=== PATIENT | male | born 1980 | race Two or more races ===

== ENCOUNTER 2024-07-29 00:30 | Emergency (ER) | payer SELFPAY ==
[2024-07-29 00:31] VITALS: BMI 25.0
== END 2024-07-29 01:48 | disposition left against medical advice (07) ==
LOC: SERX 03:21
PROVIDERS: Emergency Provider Emergency Medicine
DX: Z53.21 Procedure and treatment not carried out due to patient leaving prior to being seen by health care provider (principal)

== ENCOUNTER 2024-07-29 19:31 | Emergency (ER) | payer MEDICAID, SELFPAY ==
[2024-07-29 20:16] VITALS: BP 150/64; PULSE 69; RESP 18; TEMP 37.2; O2SAT 99
--- NOTE | 2024-07-29 20:30 | XR_ITS ---
Examination: CT abdomen and pelvis without contrast. Coronal 3-D reconstructions. Sagittal 2-D reconstructions. Date and time of exam:July 29, 2024 2049 hrs. Indications: Onset left-sided flank pain beginning yesterday CTDI: vol (mGy): 6.80 DLP: (mGycm): 405 Technique: Axial images of the abdomen have been obtained, 3 mm slice thickness Intravenous contrast material has not been administered. Low dose protocols were performed. One or more of the following dose reduction techniques were used; automated exposure control, adjustment of the mA and/or KV according to patient size, use of iterative reconstruction technique. Findings: No focal liver or splenic lesion No gallstones No pancreatic or adrenal mass 2 mm nonobstructing left renal calculus Mild left hydronephrosis secondary to 4.5 mm proximal left ureteral calculus Aorta normal size Normal appendix No bowel obstruction or free air No bladder mass or bladder calculi Impression: Mild left hydronephrosis secondary to 4.5 mm proximal left ureteral calculus
[2024-07-29] MEDS: ONDANSETRON ODT 4 MG TABRAP PO (20:42)
[2024-07-29] MEDS: KETOROLAC INJ 60 MG/2 ML VIAL IM (20:43)
--- NOTE | 2024-07-29 21:04 | EDNOTE_ITS ---
<Statement entered by Nisa Mary MD - 07/30/24 04:06> As co-signing physician, I was present and available for consult prn. I concur with the plan and care as documented by the midlevel provider. ED Back Injury Pain RME/HPI General Chief Complaint: Abdominal Pain Stated Complaint: LEFT FLANK PAIN Time Seen by Provider: 07/29/24 20:22 Arrival date/time: 07/29/24 19:31 43M with no significant PMH presents to ED with 1 day of L flank pain and N/V. Patient denies dysuria, but there is a pressure sensation when urinating. Limitations: no limitations Related Data Previous Rx's ?Medication ?Instructions ?Recorded naproxen 500 mg tablet 500 mg PO BID PRN pain #30 tabs 07/29/24 ondansetron 4 mg disintegrating 4 mg PO Q8H PRN nausea and 07/29/24 tablet vomiting #30 tabs tamsulosin 0.4 mg capsule (Flomax) 0.4 mg PO QDAY #30 caps 07/29/24 Allergies Allergy/AdvReac Type Severity Reaction Status Date / Time No Known Allergies Allergy Verified 07/29/24 19:34 Review of Systems Review of Systems Systems Reviewed: All systems reviewed, normal except as documented Constitutional Constitutional: Reports system reviewed and no additional complaints, except as documented, Denies fever(s) and Denies headache(s) ENT Ears, Nose, Mouth, and Throat: Denies disequilibrium and Denies headache(s) Cardiovascular Cardiovascular: Reports system reviewed and no additional complaints, except as documented, Denies chest pain and Denies dyspnea Respiratory Respiratory: Reports system reviewed and no additional complaints, except as documented, Denies cough and Denies dyspnea Gastrointestinal Gastrointestinal: Reports system reviewed and no additional complaints, except as documented, Reports as per HPI, Denies abdominal pain, Reports nausea and Reports vomiting Genitourinary Genitourinary: Reports as per HPI and Reports flank pain Neurologic Neurologic: Reports system reviewed and no additional complaints, except as documented, Denies confusion, Denies disequilibrium and Denies headache(s) Psychiatric Psychiatric: Denies confusion Past Medical History Social History SMOKING STATUS: Current some day smoker ED Exam General Limitations: Present no limitations General appearance: Present alert and in no apparent distress Head Head exam: Present atraumatic Eye Eye exam: Present normal appearance, PERRL and EOMI ENT ENT exam: Present normal exam, normal oropharynx and mucous membranes moist Neck Neck exam: Present normal inspection, full ROM and trachea midline Chest Chest inspection: Present normal inspection and symmetric chest wall rise Respiratory Respiratory exam: Present normal lung sounds bilaterally Cardiovascular Cardiovascular exam: Present regular rate, normal rhythm and normal heart sounds Abdominal Exam Abdominal exam: Present soft and normal bowel sounds Extremities Exam Extremities exam: Present normal inspection and full ROM Back Exam Back exam: Present normal inspection and full ROM Neurological Exam Neurological exam: Present alert, oriented X3 and CN II-XII intact Psychiatric Psychiatric exam: Present normal affect and normal mood Skin Skin exam: Present warm, dry, intact and normal color Course Quality Measures none Orders Category Date Time Status CT abdomen pelvis wo con Stat Exams 07/29/24 20:30 Completed CBC Stat Lab 07/29/24 20:32 Completed CMP [Comprehensive Metabolic Panel] Stat Lab 07/29/24 20:32 Completed Lipase Stat Lab 07/29/24 20:32 Completed Urinalysis, C/S if Indicated Stat Lab 07/29/24 22:00 Completed Ketorolac Inj [Toradol Inj] Med 07/29/24 20:30 Discontinued 60 mg IM X1 ONE Ondansetron Odt [Zofran Odt] Med 07/29/24 20:30 Discontinued 4 mg PO X1 ONE Tamsulosin HCl [Flomax] Med 07/29/24 22:42 Discontinued 0.4 mg PO X1 ONE Vital Signs Vital signs: Vital Signs Temperature 98.9 F 07/29/24 20:16 Pulse Rate 69 07/29/24 20:16 Respiratory Rate 18 07/29/24 20:16 Blood Pressure 150/64 H 07/29/24 20:16 Pulse Oximetry (%) 99 07/29/24 20:16 Oxygen Delivery Method Room Air 07/29/24 20:16 O2 at 99% on RA and WNLs Back Pain / Injury MDM Narrative MDM Narrative:: 43M with no significant PMH presents to ED with 1 day of L flank pain and N/V. Patient denies dysuria, but there is a pressure sensation when urinating. Physical exam reveals no flank or ab tenderness. Patient is afebrile, alert, but appears to be in pain. CT 4.5 mm L kidney stone. Mild leukocytosis. Cr normal. UA has blood but no signs of UTI. Patient data External records reviewed:: None Clinical information provided by:: patient Social determinants that could affect healthcare access:: none Patient has the following chronic illnesses:: none How is presenting disease/condition affected by chronic disease/condition?: no chronic disease Evaluation data The following diagnostics were reviewed and interpreted by me:: lab results and radiology exam(s) Lab and/or radiology exams considered but not ordered:: ordered Interpretation Summary: above Medications / Prescriptions Medications or Prescriptions considered but not ordered:: ordered Medication administrations:: Medication Administration History Discontinued Medications Ketorolac Tromethamine (Ketorolac Inj 60 Mg/2 Ml Vial) 60 mg IM X1 ONE Stop: 07/29/24 20:31 Last Admin: 07/29/24 20:43 Dose: 60 mg Documented By: SERG Ondansetron HCl (Ondansetron Odt 4 Mg Tabrap) 4 mg PO X1 ONE; Protocol Stop: 07/29/24 20:31 Last Admin: 07/29/24 20:42 Dose: 4 mg Documented By: SERG Tamsulosin HCl (Tamsulosin Hcl 0.4 Mg Capsule) 0.4 mg PO X1 ONE Stop: 07/29/24 22:43 above Consultations Consultation(s) initiated? (list below): No Diagnosis Differential diagnosis back pain/injury: lumbar radiculopathy, sciatica, strain of lumbar region, renal colic, pyelonephritis, thoracic back pain, AAA, discitis and other (kidney stone) Most likely diagnosis given after review of the tests above:: kidney stone Admission Indicated Admission indicated?: not indicated Admission Request Was there a request for admission?: No Disposition Plan Disposition Plan: Discharge Discharge Attestation Discharge Attestation: The patient and all family members were given an opportunity to ask questions and understood the discharge instructions. Discharge instructions specifically effects, indications for sooner follow up or return to the emergency department, and the expected course of current diagnosis. Patient condition: Stable Discharge Plan Plan Patient Disposition: HOME (Self Care) Disposition Comment: Stable Prescriptions/Referrals Prescriptions/Med Rec: New naproxen 500 mg tablet 500 mg PO BID PRN (Reason: pain) Qty: 30 0RF ondansetron 4 mg tablet,disintegrating 4 mg PO Q8H PRN (Reason: nausea and vomiting) Qty: 30 0RF tamsulosin [Flomax] 0.4 mg capsule 0.4 mg PO QDAY Qty: 30 0RF Rx Instructions: use until you pass stone Referrals: Atif Palmer MD [Primary Care Provider] - In 1 week Problem List Clinical Impression: Calculus of kidney Patient/Caregiver Discharge Instructions Education Materials: Understanding Kidney Stones, Treating Kidney Stones: Medicines Additional Instructions: Please follow-up with PCP within 24-48 hours and return immediately if symptoms worsen. If problems persists, see urologist. Print Language: Slovenian Stand Alone Forms: Patient Portal Info Letter PA/JOB PLACEMENT OFFICER Supervising Physician PA/JOB PLACEMENT OFFICER Supervising Physician: Dr. Mary
[2024-07-29 21:08] LABS: Basophils # (Auto) 0.1 Thou/mm3 (0.0-0.2); Basophils % (Auto) 0 % (0-2.5); Eosinophils % (Auto) 0 % (0-10); Hematocrit 41.3 % (41.0-53.0); Hemoglobin 14.1 g/dL (13.5-16.0); Immature Granulocytes % (Auto) 0 % (0-0); Immature Granulocytes Auto 0.04 Thou/mm3 (0.00-0.00); Lymphocytes # (Auto) 2.5 Thou/mm3 (1.0-4.8); Lymphocytes % (Auto) 19 % (10-50); Mean Corpuscular HGB Conc 34.1 g/dl (31.0-37.0); Mean Corpuscular Hemoglobin 29.7 pg (25.0-35.0); Mean Corpuscular Volume 87 fL (80-100); Monocytes # (Auto) 0.8 Thou/mm3 (0.0-0.8); Monocytes % (Auto) 6 % (0-12); Neutrophils # (Auto) 9.6 Thou/mm3 (1.8-7.7); Neutrophils % (Auto) 74 % (37-80); Nucleated Red Blood Cell % 0 /100 WBC (0); Platelet Count 302 Thou/mm3 (140-440); Red Blood Count 4.74 Miln/mm3 (4.50-5.90)
[2024-07-29 21:33] LABS: Alanine Aminotransferase 45 U/L (10-49); Albumin, Serum 5.2 gm/dL (3.5-5.0); Albumin/Globulin Ratio 1.5 (1.2-2.2); Alkaline Phosphatase 85 U/L (46-116); Anion Gap 10 (7-16); Aspartate Amino Transferase 38 U/L (0-34); BUN/Creatinine Ratio 14 Ratio (12-20); Bilirubin,Total 0.4 mg/dL (0.3-1.2); Blood Urea Nitrogen 14 mg/dL (9-23); Calcium 10.9 mg/dL (8.3-10.6); Calcium (Corrected) 10.9 mg/dL (8.5-10.1); Carbon Dioxide 27.7 mMol/L (20.0-31.0); Chloride 103 mMol/L (98-107); Globulin 3.4 gm/dL (2.3-3.5); Glucose 113 mg/dL (74-106); Lipase 30 U/L (12-53); Osmolality,Calculated 282 (275-295); Potassium 3.4 mMol/L (3.4-5.1); Sodium 141 mMol/L (136-145); Total Protein 8.6 gm/dL (5.7-8.2); eGFR > 60 See Note
[2024-07-29 22:08] LABS: Collection Type, Urine Clean Catch; WBC,Urine 0 /hpf (0-5)
[2024-07-29 22:33] LABS: Bilirubin,Urine Negative (Negative); Blood,Urine 3+ (Negative); Clarity,Urine Turbid (Clear/Hazy); Color,Urine Yellow (Lt Yel-Yel); Culture Indicated,Urine Not Indicated; Glucose, Urine Negative (Negative); Hyaline Casts,Urine < 1 /hpf (0-1); Ketones,Urine Trace (Negative); Leukocyte Esterase,Urine Negative (Negative); Nitrite,Urine Negative (Negative); Protein,Urine 1+ (Neg - Trace); RBC,Urine 56 /hpf (0-3); Specific Gravity,Urine 1.028 (1.001-1.035); Squamous Epithelial Cell,Urine < 1 /hpf (0-5); Urobilinogen,Urine Negative mg/dL (0.0-1.0)
[2024-07-29] MEDS: TAMSULOSIN HCL 0.4 MG CAPSULE PO (22:48)
[2024-07-29 22:56] VITALS: RESP 18
== END 2024-07-29 22:57 | disposition home or self-care (01) ==
PROVIDERS: Physician Assistant; Emergency Provider Emergency Medicine; PCP Family Medicine
DX: N20.0 Calculus of kidney (principal)
CPT/HCPCS: 36415; 74176; 80053; 81001; 83690; 85025; 96372; 99284; J1885; Q0162; A9270

== ENCOUNTER 2024-09-06 07:17 | Emergency (ER) | payer MEDICAID, SELFPAY ==
[2024-09-06 07:26] VITALS: BP 136/88; PULSE 55; RESP 16; TEMP 37.1; O2SAT 99; BMI 25.0
--- NOTE | 2024-09-06 07:30 | XR_ITS ---
Examination: CT abdomen and pelvis without contrast. Coronal 3-D reconstructions. Sagittal 2-D reconstructions. Date and time of exam:September 06, 2024 at 0752 hrs. Comparison July 29, 2024 Indications: Left flank pain beginning one month ago, history kidney stones, mild left hydronephrosis secondary to 4.5 mm proximal left ureteral calculus on CT stone study July 29, 2024 CTDI: vol (mGy): 6.8 DLP: (mGycm): 369 Technique: Axial images of the abdomen have been obtained, 3 mm slice thickness Intravenous contrast material has not been administered. Low dose protocols were performed. One or more of the following dose reduction techniques were used; automated exposure control, adjustment of the mA and/or KV according to patient size, use of iterative reconstruction technique. Findings: Calcified granuloma right lower lobe No liver lesions or biliary tract dilatation No gallstones No pancreatic or adrenal mass Mild left hydronephrosis remains secondary to 4.5 mm proximal left ureteral calculus Aorta normal size No bowel obstruction Normal appendix Colonic diverticulosis, no diverticulitis No prostatomegaly No bladder mass The osseous structures are intact Impression: Persistent mild left hydronephrosis secondary to 4.5 mm proximal left ureteral calculus
--- NOTE | 2024-09-06 07:31 | PD.EDRME ---
Rapid Medical Screening Exam RME Arrival date/time: 09/06/24 07:17 43-year-old male presents emergency department complaints of lower abdominal pain patient reports history of kidney stone Chief Complaint: Abdominal Pain Vital signs: Vital Signs Temperature 98.8 F 09/06/24 07:26 Pulse Rate 55 L 09/06/24 07:26 Respiratory Rate 16 09/06/24 07:26 Blood Pressure 136/88 H 09/06/24 07:26 Pulse Oximetry (%) 99 09/06/24 07:26 Oxygen Delivery Method Room Air 09/06/24 07:26
[2024-09-06] MEDS: KETOROLAC INJ 30 MG/ML VIAL IM (07:40)
[2024-09-06 08:09] LABS: Basophils % (Auto) 0 % (0-2.5); Eosinophils # (Auto) 0.1 Thou/mm3 (0.0-0.5); Eosinophils % (Auto) 0 % (0-10); Hematocrit 39.6 % (41.0-53.0); Hemoglobin 13.7 g/dL (13.5-16.0); Immature Granulocytes % (Auto) 0 % (0-0); Immature Granulocytes Auto 0.05 Thou/mm3 (0.00-0.00); Lymphocytes # (Auto) 1.4 Thou/mm3 (1.0-4.8); Lymphocytes % (Auto) 10 % (10-50); Mean Corpuscular HGB Conc 34.6 g/dl (31.0-37.0); Mean Corpuscular Volume 87 fL (80-100); Monocytes # (Auto) 0.8 Thou/mm3 (0.0-0.8); Monocytes % (Auto) 6 % (0-12); Neutrophils # (Auto) 10.8 Thou/mm3 (1.8-7.7); Neutrophils % (Auto) 82 % (37-80); Nucleated Red Blood Cell % 0 /100 WBC (0); Platelet Count 248 Thou/mm3 (140-440); RDW Standard Deviation 41.8 fL (35.1-43.9); Red Blood Count 4.56 Miln/mm3 (4.50-5.90); White Blood Count 13.1 Thou/mm3 (3.8-10.6)
[2024-09-06 08:11] VITALS: BP 115/65; PULSE 56; RESP 16; TEMP 36.4; O2SAT 100
[2024-09-06 08:19] LABS: Collection Type, Urine Clean Catch; Squamous Epithelial Cell,Urine 0 /hpf (0-5)
[2024-09-06 08:19] LABS: Alanine Aminotransferase 17 U/L (10-49); Albumin/Globulin Ratio 1.6 (1.2-2.2); Alkaline Phosphatase 70 U/L (46-116); Anion Gap 9 (7-16); Aspartate Amino Transferase 21 U/L (0-34); BUN/Creatinine Ratio 14 Ratio (12-20); Bilirubin,Total 0.4 mg/dL (0.3-1.2); Blood Urea Nitrogen 17 mg/dL (9-23); Calcium 9.9 mg/dL (8.3-10.6); Calcium (Corrected) 9.9 mg/dL (8.5-10.1); Carbon Dioxide 26.2 mMol/L (20.0-31.0); Chloride 102 mMol/L (98-107); Creatinine (Component) 1.2 mg/dL (0.6-1.3); Globulin 3.1 gm/dL (2.3-3.5); Glucose 111 mg/dL (74-106); Lipase 32 U/L (12-53); Osmolality,Calculated 276 (275-295); Sodium 137 mMol/L (136-145); Total Protein 8.1 gm/dL (5.7-8.2); eGFR > 60 See Note
[2024-09-06 08:29] LABS: Bilirubin,Urine Negative (Negative); Blood,Urine Negative (Negative); Clarity,Urine Clear (Clear/Hazy); Culture Indicated,Urine Not Indicated; Glucose, Urine Negative (Negative); Ketones,Urine Negative (Negative); Leukocyte Esterase,Urine Negative (Negative); Nitrite,Urine Negative (Negative); PH,Urine 6.5 (5.0-7.0); Protein,Urine Negative (Neg - Trace); RBC,Urine < 1 /hpf (0-3); Specific Gravity,Urine 1.007 (1.001-1.035); Urobilinogen,Urine Negative mg/dL (0.0-1.0); WBC,Urine < 1 /hpf (0-5)
--- NOTE | 2024-09-06 08:31 | PD.EDABDPN ---
ED Abdominal Pain RME/HPI General Chief Complaint: Abdominal Pain Stated complaint: ABDOMINAL PAIN Arrival date/time: 09/06/24 07:17 RME / HPI RME / HPI narrative: 09/06/24 07:17 43-year-old male presents emergency department complaints of lower abdominal pain patient reports history of kidney stone DR. FOSTER MAIN ED EVALUATION: 43 year old male with past medical history significant for kidney stones presents to the Emergency Department with complaint of left mid abdomen pain/ left flank pain. Pain is described as aching and rated moderate in severity. Related Data Previous Rx's ?Medication ?Instructions ?Recorded naproxen 500 mg tablet 500 mg PO BID PRN pain #30 tabs 07/29/24 ondansetron 4 mg disintegrating 4 mg PO Q8H PRN nausea and 07/29/24 tablet vomiting #30 tabs tamsulosin 0.4 mg capsule (Flomax) 0.4 mg PO QDAY #30 caps 07/29/24 ibuprofen 600 mg tablet 600 mg PO Q6H PRN pain #30 tabs 09/06/24 tamsulosin 0.4 mg capsule (Flomax) 0.4 mg PO QDAY #30 caps 09/06/24 Allergies Allergy/AdvReac Type Severity Reaction Status Date / Time No Known Allergies Allergy Verified 09/06/24 07:21 Review of Systems Review of Systems Systems Reviewed: All systems reviewed, normal except as documented Narrative Review of Systems: GEN: No fever, no chills, no weight loss EYES: No discharge, no visual changes, no pain HEENT: No ear pain, no congestion, no sore throat PULM: No shortness of breath, no cough, no congestion CV: No chest pain, no dyspnea on exertion, no palpitations GI: No nausea, no vomiting, no diarrhea, + left mid abdomen pain/ left flank pain, no constipation : No frequency, no urgency and no dysuria MUSC/SKEL: No joint pain, no back pain SKIN: No rash PSYCH: No hallucinations, no depression HEME/LYMPH: No easy bleeding or bruising tendencies NEURO: No weakness, no headache Past Medical History Past Medical History NEUROLOGIC: Negative Neurological Disorders CARDIAC: Negative Cardiac Disorders or Congestive Heart Failure RESPIRATORY: Negative Respiratory Disorders, Chronic Obstructive Pulmonary Disease (COPD) or Asthma GASTROINTESTINAL: Negative Gastrointestinal Disorders GENITOURINARY: Positive Kidney Stones; Negative Genitourinary Disorders or Renal Disease MUSCULOSKELETAL: Negative Musculoskeletal Disorders ENT: Negative History of ENT Problems ENDOCRINE: Negative Endocrine Disorders, Diabetes Mellitus Type 1 or Diabetes Mellitus Type 2 HEMATOLOGIC: Negative Blood Disorders or Sickle Cell Disease Surgical History SURGICAL: Negative Endocrine Surgery, Ear Surgery, Abdominal Surgery, Nephrectomy or Joint Replacement Social History SMOKING STATUS: Never smoker SUBSTANCE USE: does not use ALCOHOL: Never ED Exam Narrative Physical exam: GENERAL APPEARANCE: Well hydrated, well nourished. VITALS: All vitals were reviewed and the pulse ox is 100% on room air which is normal according to my interpretation. HEENT: Normocephalic, atramatic, EOMI, EACs are patent. There is no bulge or retraction. Throat without erythema or exudate. Moist oromucosa. No jaundice NECK: Supple, no JVD or bruits. CARDIOVASCULAR: Heart regular without S3-S4 or murmur. No rubs or gallops. LUNGS/CHEST: Clear to auscultation bilaterally. No rales, rhonchi, or wheezing. Normal inspection. ABDOMEN: There is some tenderness in the left mid abdomen area. Normal bowel sounds. No pulsatile masses. No incarcerated hernia. EXTREMITIES: No edema, clubbing, or cyanosis. Intact CSM. Normal inspection and palpation. SKIN: Warm and dry without rashes. Normal inspection. MUSCULOSKELETAL: No gross deformity, full ROM all extremities. Normal inspection. NEURO: Alert and oriented x3. Cranial nerves II through XII grossly intact. There are no other motor or sensory deficits noted. PSYCHIATRIC: Normal mood and affect. No psychosis. Course Quality Measures none Orders Category Date Time Status CT abdomen pelvis wo con Stat Exams 09/06/24 07:30 Completed CBC Stat Lab 09/06/24 07:46 Completed Comprehensive Metabolic Panel Stat Lab 09/06/24 07:46 Completed Lipase Stat Lab 09/06/24 07:46 Completed UA, C/S IF [Urinalysis, C/S if Indicated] Stat Lab 09/06/24 08:08 Completed Ketorolac Inj [Toradol Inj] Med 09/06/24 07:30 Discontinued 30 mg IM X1 ONE Morphine Inj Med 09/06/24 08:48 Discontinued 4 mg IVP X1 ONE Ondansetron Inj [Zofran Inj] Med 09/06/24 08:48 Discontinued 4 mg IV X1 ONE Ringers Lactated 1000 ml [Lactated Ringers] 1,000 ml Med 09/06/24 08:48 Discontinued IV 999 mls/hr Vital Signs Vital signs: Vital Signs Temperature 98.8 F 09/06/24 07:26 Pulse Rate 55 L 09/06/24 07:26 Respiratory Rate 16 09/06/24 07:26 Blood Pressure 136/88 H 09/06/24 07:26 Pulse Oximetry (%) 99 09/06/24 07:26 Oxygen Delivery Method Room Air 09/06/24 07:26 Abdominal Pain [facility] Narrative [facility] Narrative:: I, Kate Castillo, am scribing for and in the presence of Dr. Foster. WBC count at 13,000 with no sign of sepsis. CMP and lipase are negative. UA is negative. CT abdomen and pelvic reviewed by and interpreted by me as follow. No free fluid. No free air. No obstruction. There is a small ureteral stone at the upper part of the left ureter. With mild hydronephrosis the left kidney. No stranding noted. No pericecal stranding either. Pancreas and gallbladder are unremarkable. This CT images almost identical to the one in July 29, 2024. Patient knows that we do not have any urologist on-call for the hospital. And that he needs to follow[facility]up with [facility] for referral to . In the meantime we will put the patient on Flomax and Motrin for the pain and try to facilitate the passage of the stone. Patient data External records reviewed:: [facility] previous records (Reviewed last ED visit dated 07/29/24, discharged with the following: Calculus of kidney) Clinical information provided by:: patient Social determinants that could affect healthcare access:: none Patient has the following chronic illnesses:: kidney stones How is presenting disease/condition affected by chronic disease/condition?: exacerbated by Evaluation data The following diagnostics were reviewed and interpreted by me:: lab results and radiology exam(s) Lab and/or radiology exams considered but not ordered:: none Interpretation Summary: See above under MDM narrative. RADIOLOGY Procedure(s): CT abdomen pelvis wo con Accession Number(s): [id number] cc: Tiffanie (FEDERICO),David CABALLERO; Kennedy Shaw MD; NO PRIMARY/FAMILY,PHYSICIAN~ Examination: CT abdomen and pelvis without contrast. Coronal 3-D reconstructions. Sagittal 2-D reconstructions. Date and time of exam:September 06, 2024 at 0752 hrs. Comparison July 29, 2024 Indications: Left flank pain beginning one month ago, history kidney stones, mild left hydronephrosis secondary to 4.5 mm proximal left ureteral calculus on CT stone study July 29, 2024 CTDI: vol (mGy): 6.8 DLP: (mGycm): 369 Technique: Axial images of the abdomen have been obtained, 3 mm slice thickness Intravenous contrast material has not been administered. Low dose protocols were performed. One or more of the following dose reduction techniques were used; automated exposure control, adjustment of the mA and/or KV according to patient size, use of iterative reconstruction technique. Findings: Calcified granuloma right lower lobe No liver lesions or biliary tract dilatation No gallstones No pancreatic or adrenal mass Mild left hydronephrosis remains secondary to 4.5 mm proximal left ureteral calculus Aorta normal size No bowel obstruction Normal appendix Colonic diverticulosis, no diverticulitis No prostatomegaly No bladder mass The osseous structures are intact Impression: Persistent mild left hydronephrosis secondary to 4.5 mm proximal left ureteral calculus Dictated By: Kennedy Shaw MD Medications / Prescriptions Medications or Prescriptions considered but not ordered:: none Medication administrations:: Medication Administration History Discontinued Medications Lactated Ringer's (Lactated Ringers) 1,000 mls @ 999 mls/hr IV .Q1H1M ONE Stop: 09/06/24 09:48 Last Infusion: 09/06/24 10:18 Dose: Infused Documented By: Admin: 09/06/24 09:11 Dose: 999 mls/hr Documented By: AM Ketorolac Tromethamine (Ketorolac Inj 30 Mg/Ml Vial) 30 mg IM X1 ONE Stop: 09/06/24 07:31 Last Admin: 09/06/24 07:40 Dose: 30 mg Documented By: DO Morphine Sulfate (Morphine Sulf Inj 10 Mg/Ml Vial) 4 mg IVP X1 ONE Stop: 09/06/24 08:49 Ondansetron HCl (Ondansetron Inj 2 Mg/Ml Inj 2 Ml) 4 mg IV X1 ONE; Protocol Stop: 09/06/24 08:49 Last Admin: 09/06/24 09:11 Dose: 4 mg Documented By: AM see above Consultations Consultation(s) initiated? (list below): No Diagnosis Differential diagnosis abdominal pain: abdominal pain, calculus of kidney, pancreatitis and small bowel obstruction Most likely diagnosis given after review of the tests above:: Left ureteral stone, unchanged since 07/29/2024 Admission Indicated Admission indicated?: not indicated Admission Request Was there a request for admission?: No Disposition Plan Disposition Plan: Discharge Discharge Attestation Discharge Attestation: The patient and all family members were given an opportunity to ask questions and understood the discharge instructions. Discharge instructions specifically effects, indications for sooner follow up or return to the emergency department, and the expected course of current diagnosis. Patient condition: Stable Discharge Plan Plan Patient Disposition: HOME (Self Care) Disposition Comment: Stable for DC home Prescriptions/Referrals Prescriptions/Med Rec: New tamsulosin [Flomax] 0.4 mg capsule 0.4 mg PO QDAY Qty: 30 0RF ibuprofen 600 mg tablet 600 mg PO Q6H PRN (Reason: pain) Qty: 30 0RF No Action naproxen 500 mg tablet 500 mg PO BID PRN (Reason: pain) Qty: 30 0RF ondansetron 4 mg tablet,disintegrating 4 mg PO Q8H PRN (Reason: nausea and vomiting) Qty: 30 0RF tamsulosin [Flomax] 0.4 mg capsule 0.4 mg PO QDAY Qty: 30 0RF Rx Instructions: use until you pass stone Referrals: No Primary/Family,Physician [Primary Care Provider] - In 1 week Problem List Clinical Impression: Left ureteral calculus Patient/Caregiver Discharge Instructions Education Materials: Understanding Kidney Stones Additional Instructions: Medication as prescribed including Motrin and Flomax. [facility] and referral to see a urologist specialist. We do not have urologist on-call for our ER. Return the nearest ER, preferably the 1 with the urologist on-call for further care if condition worsens or if new symptoms develop especially fever or trouble urinating Print Language: Algerian Stand Alone Forms: Rachael Award Info., Patient Portal Info Letter
[2024-09-06 09:05] LABS: Color,Urine Lt-Yellow (Lt Yel-Yel)
[2024-09-06] MEDS: RINGERS LACTATED 1000 ML 1,000 ML 999 ML IV (09:11)
[2024-09-06] MEDS: ONDANSETRON INJ 2 MG/ML INJ 2 ML 4 MG IV (09:11)
--- NOTE | 2024-09-06 09:16 | PC.NURSE ---
Pt does not want morphine right now. Pt would like to wait until his pain is bad.
[2024-09-06 09:28] VITALS: BP 114/63; PULSE 56; RESP 15; TEMP 36.6; O2SAT 100
== END 2024-09-06 12:31 | disposition home or self-care (01) ==
PROVIDERS: Nurse Practitioner Primary Care; Emergency Provider Emergency Medicine
DX: N13.2 Hydronephrosis with renal and ureteral calculous obstruction (principal)
CPT/HCPCS: 36415; 74176; 80053; 81001; 83690; 85025; 96361; 96372; 96374; 99284; J1885; J2270; J2405; J7120

== ENCOUNTER → 2024-11-09 | Outpatient (CLI) | payer MEDICAID, SELFPAY ==
--- NOTE | 2024-11-09 16:37 | XR_ITS ---
Examination: Abdomen AP single view Technique: AP portable supine abdomen, single view Exam date and time: November 09, 2024 at 1659 hours INDICATIONS: History kidney stones left ureteral stent placement 3 months ago FINDINGS: Left ureteral stent satisfactory position 3 mm lower pole left renal calculi IMPRESSION: Left ureteral stent satisfactory position
== END | disposition home or self-care (01) ==
LOC: CDIM 16:33
PROVIDERS: PCP Family Medicine; Referring Provider Surgery; Visit Provider Surgery
DX: N20.1 Calculus of ureter (principal)
CPT/HCPCS: 74018

== ENCOUNTER 2024-12-11 07:20 | Day surgery (SDC) | payer MEDICAID, SELFPAY ==
--- NOTE | 2024-12-10 07:00 | EKG_ITS ---
[facility] Test Date: 2024-12-10 Pat Name: JOSE ALLEN Department: Room: - Gender: Male [employer]: LU : 1980 Requested By: Flip Weinstein Order Number: [id number] Reading MD: Flip Weinstein Measurements Intervals Wilder Rate: 47 P: 45 [place]: 202 QRS: 59 QRSD: 109 T: 50 QT: 408 QTc: 363 Interpretive Statements SINUS BRADYCARDIA No previous ECG available for comparison /store/S0/[id number]/ecg/[id number].pdf
[2024-12-10 07:29] VITALS: BMI 27.9
[2024-12-10 09:13] LABS: Collection Type, Urine Clean Catch; Squamous Epithelial Cell,Urine 0 /hpf (0-5)
[2024-12-10 09:31] LABS: Basophils % (Auto) 1 % (0-2.5); Eosinophils # (Auto) 0.1 Thou/mm3 (0.0-0.5); Eosinophils % (Auto) 2 % (0-10); Hematocrit 42.4 % (41.0-53.0); Hemoglobin 14.1 g/dL (13.5-16.0); Immature Granulocytes % (Auto) 0 % (0-0); Immature Granulocytes Auto 0.03 Thou/mm3 (0.00-0.00); Lymphocytes # (Auto) 2.3 Thou/mm3 (1.0-4.8); Lymphocytes % (Auto) 33 % (10-50); Mean Corpuscular HGB Conc 33.3 g/dl (31.0-37.0); Mean Corpuscular Volume 87 fL (80-100); Monocytes # (Auto) 0.5 Thou/mm3 (0.0-0.8); Monocytes % (Auto) 7 % (0-12); Neutrophils % (Auto) 58 % (37-80); Nucleated Red Blood Cell % 0 /100 WBC (0); Platelet Count 252 Thou/mm3 (140-440); RDW Standard Deviation 43.6 fL (35.1-43.9); Red Blood Count 4.86 Miln/mm3 (4.50-5.90)
[2024-12-10 09:35] LABS: Anion Gap 7 (7-16); BUN/Creatinine Ratio 14 Ratio (12-20); Blood Urea Nitrogen 13 mg/dL (9-23); Calcium 9.6 mg/dL (8.3-10.6); Carbon Dioxide 28.9 mMol/L (20.0-31.0); Chloride 101 mMol/L (98-107); Creatinine (Component) 0.9 mg/dL (0.6-1.3); Estimated Creatinine Clearance 96.4 mL/min (>60); Glucose 96 mg/dL (74-106); Osmolality,Calculated 273 (275-295); Potassium 3.9 mMol/L (3.4-5.1); Sodium 137 mMol/L (136-145); eGFR > 60 See Note
[2024-12-10 09:40] LABS: Bilirubin,Urine Negative (Negative); Blood,Urine 1+ (Negative); Clarity,Urine Clear (Clear/Hazy); Color,Urine Lt-Yellow (Lt Yel-Yel); Glucose, Urine Negative (Negative); Ketones,Urine Negative (Negative); Leukocyte Esterase,Urine Positive (Negative); Nitrite,Urine Negative (Negative); PH,Urine 6.5 (5.0-7.0); Protein,Urine Trace (Neg - Trace); RBC,Urine 35 /hpf (0-3); Specific Gravity,Urine 1.018 (1.001-1.035); Urobilinogen,Urine Negative mg/dL (0.0-1.0); WBC,Urine 4 /hpf (0-5)
[2024-12-10 09:48] LABS: Sperm,Urine Present
--- NOTE | 2024-12-10 14:17 | ESHP_ITS ---
RE: JOSE ALLEN : 1980 DATE OF ADMISSION: 12/11/2024 HISTORY OF PRESENT ILLNESS: The patient has a left renal calculi and the patient is scheduled ESWL for left renal calculi. A 44-year-old male, Solomon Islander-speaking, with pain on the left side. The patient has been having pain on the left side. The patient has a stone about 5 to 6 mm in the left kidney. The patient is scheduled to have ESWL for the left kidney stone. PAST SURGICAL HISTORY: Included left ureteral stent. PAST MEDICAL HISTORY: There is no history of diabetes mellitus. No history of hypertension. SOCIAL HISTORY: The patient has two children. HOME MEDICATIONS: The patient takes, 1. Flomax. 2. Naproxen. 3. Antibiotics. ALLERGIES: NIL KNOWN. PHYSICAL EXAMINATION: HEENT: Normal. NECK: Supple. LUNGS: Clear. CARDIOVASCULAR: Heart sounds are normal. ABDOMEN: Soft without any organomegaly. No guarding. No rigidity. EXTREMITIES: Normal. LABORATORY DATA: X-rays revealed stone in the left kidney with a left ureteral stent. PLAN: ESWL for the left renal stone. The stone was in the left ureter and it has moved up to the kidney. Planned procedure, risks, and complications have been discussed with the patient. The patient has understood them and agreed to proceed. DT: 13:08:18 TT: 14:15:00 Ref: [id number] - TID: [id number]
[2024-12-11] VITALS (8 sets, daily range): BP systolic 92–115; BP diastolic 64–74; PULSE 57–69; RESP 12–19; TEMP 36.4–36.6; O2SAT 96–100; BMI 26.3
--- NOTE | 2024-12-11 06:30 | XR_ITS ---
Examination: Abdomen AP single view Technique: AP portable supine abdomen, single view Exam date and time: December 11, 2024 0929 hours Comparison: November 09, 2024 INDICATIONS: History kidney stones, left ureteral stent placement FINDINGS: Left ureteral stent satisfactory position No definite renal or ureteral calculi Nonobstructive bowel gas pattern IMPRESSION: Left ureteral stent satisfactory position
--- NOTE | 2024-12-11 10:34 | SUR.PHASEI ---
1005: Pt received in [facility] via gurney. Report from Mick RIVERS and Carlo MARIE. Pt groggy, but awake. Resp even, unlabored. VS stable. No c/o pain, discomfort. 1030: Pt resting with no complaints voiced. Resp even, unlabored. VS stable. Denies pain.
--- NOTE | 2024-12-11 10:45 | SUR.PHASEII ---
1045: Pt more awake, alert. VS stable. Denies pain. Sitting up tolerating po fluids with no difficulty swallowing and no n/v.
--- NOTE | 2024-12-11 11:25 | SUR.PHASEII ---
1115: Pt fully awake, oriented x3. VS stable. Denies pain, nausea. Pt dressed. Assisted to transport chair. Ambulation steady. Pt awaiting transportation.
--- NOTE | 2024-12-11 17:52 | SUR.PHASEII ---
1145: Transportation available. Pt and friend stated understanding of discharge instructions via motor grader operator [place] #[id number]. Pt discharged from [facility] in stable condition.
--- NOTE | 2024-12-11 19:37 | ESOP_ITS ---
RE: JOSE ALLEN : 1980 DATE OF OPERATION: 12/11/2024 PREOPERATIVE DIAGNOSIS: Left renal stone. POSTOPERATIVE DIAGNOSIS: Left renal stone. PROCEDURE PERFORMED: ESWL for left renal stone. ANESTHESIA: General by Mr. Carlo CRNA. INDICATIONS: The patient is a 44-year-old gentleman with a left upper ureteral stone. He was seen in the emergency room twice. He had a stent placed in the ureter somewhere else. He was then referred to me. He had a left renal stone. The stone, which was in the ureter, has moved down to the left kidney in the middle pole. The stone is about 5-6 mm in size. He is now scheduled to have ESWL for the left renal stone. Planned procedure, risks, and complications have been discussed with the patient. The patient understood them and agreed to proceed. DESCRIPTION OF PROCEDURE: After the patient was brought to the operating table under adequate general anesthesia given by Mr. Matos, he was placed in Dornier Delta III lithotripsy machine. 2500 shocks were given to the left renal stone in the mid pole at power level 7- 8. The patient tolerated the entire procedure well and left the room in good condition. DT: 09:58:21 TT: 10:54:00 Ref: [id number] - TID: [id number]
== END 2024-12-11 11:45 | disposition home or self-care (01) ==
PROVIDERS: PCP Family Medicine; Referring Provider Surgery; Visit Provider Surgery
PROC: (CPT 50590; principal; 2024-12-11 08:45)
DX: N20.0 Calculus of kidney (principal); Z96.0 Presence of urogenital implants; Z01.810 Encounter for preprocedural cardiovascular examination
CPT/HCPCS: 50590; 36415; 74018; 80048; 81001; 85025; 87086; 93005; J0131; J0694; J2250; J2704; J3010; J3490; J1596

== ENCOUNTER → 2024-12-23 | Outpatient (CLI) | payer MEDICAID, SELFPAY ==
--- NOTE | 2024-12-23 16:22 | XR_ITS ---
Examination: Abdomen AP single view Technique: AP portable supine abdomen, single view Exam date and time: December 23, 2024 1624 hours INDICATIONS: History left kidney stones FINDINGS: Stable position after ureteral stent compared with December 12, 2023 2 mm 3 mm lower pole left renal calculi IMPRESSION: Small lower pole left renal calculi
== END | disposition home or self-care (01) ==
PROVIDERS: PCP Family Medicine; Referring Provider Surgery; Visit Provider Surgery
DX: N20.0 Calculus of kidney (principal)
CPT/HCPCS: 74018

== ENCOUNTER → 2025-05-07 | Outpatient (CLI) | payer OTHER, SELFPAY ==
--- NOTE | 2025-05-07 16:00 | XR_ITS ---
Examination: CT chest, without intravenous contrast. Sagittal and coronal 2-D reconstructions. Exam date and time: May 07, 2025 1533 hours INDICATIONS: Patient fell 4 years ago with injury of the chest, persistent chest pain shortness of breath CTDI:vol (mGy) 9.34 DLP: (mGycm) 354 Technique: Multiple 3.0 mm axial sections of the chest to been obtained. Bone and lung density settings are obtained. Sagittal and coronal 2-D reconstructions have been obtained. Low dose protocols were performed. One or more of the following dose reduction techniques were used; automated exposure control, adjustment of the mA and/or KV according to patient size, use of iterative reconstruction technique. Findings: No thoracic aortic aneurysm dilatation Pulmonary artery segments are not enlarged. No paratracheal tracheobronchial or bronchopulmonary adenopathy 11 mm calcified nodule in the right lower lung zone No pneumonia pulmonary edema or pleural disease No acute rib or thoracic fractures Chronic compression T8 IMPRESSION: No mediastinal lymphadenopathy 11 mm calcified nodule in the right lower lung zone No pneumonia or pulmonary edema or pleural disease
== END | disposition home or self-care (01) ==
PROVIDERS: PCP Family Medicine; Referring Provider Family Medicine; Visit Provider Family Medicine
DX: R91.8 Other nonspecific abnormal finding of lung field (principal); Z87.81 Personal history of (healed) traumatic fracture
CPT/HCPCS: 71250